=== PATIENT | female | born 1930 | race African-American/Black ===

== ENCOUNTER 2019-05-02 16:00 | Outpatient (CLI) | payer MEDICARE, BC ==
--- NOTE | 2019-05-02 17:29 | RAD ---
LUMBAR SPINE TWO VIEWS: HISTORY: Low back pain. FINDINGS: Extensive multilevel disk osteophytosis and facet arthrosis. Mild grade 1 anterolisthesis of L3 on L 4. Some nonspecific calcific foci noted anteriorly, on the lateral view, possibly intraabdominal kiran cifications or fibroid calcifications. 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 POS: [facility]
== END 2019-05-02 16:01 | disposition home or self-care (01) ==
LOC: BICRAD 16:00
PROVIDERS: ATTEND Family Medicine
DX: M54.5 Low back pain (principal); M43.16 Spondylolisthesis, lumbar region; M25.78 Osteophyte, vertebrae; M47.816 Spondylosis without myelopathy or radiculopathy, lumbar region
CPT/HCPCS: 72100

== ENCOUNTER 2019-05-30 11:58 | Outpatient (CLI) | payer MEDICARE, BC ==
--- NOTE | 2019-05-30 13:49 | MRI ---
MRI lumbar spine noncontrast: HISTORY: Degenerative spinal stenosis COMPARISON: None FINDINGS: Heterogeneous T1 marrow signal intensity of the lumbar vertebra. Vertebral body height is maintained. No fracture. Chronic Schmorl's node along the superior endplate of L2, superior endplate of L3 and superior plate of L4. Small Schmorl's node along the superior endplate of T12. 4 mm of anterolisthesis of L3 upon L4 Symmetric signal intensity of the paraspinal muscles. Appropriate signal intensity of the visualized solid organs Conus medullaris terminates at the L1-L2 disc space T12-L1:Broad-based disc bulge, ligament flavum thickening and facet hypertrophy result in mild centra l canal stenosis. Mild bilateral neural foraminal narrowing. L1-L2:Broad-based disc bulge, ligament flavum thickening and facet hypertrophy result in mild central canal stenosis. Bilaterally, neural foramina are patent. L2-L3:Broad-based disc bulge, ligament flavum thickening and facet hypertrophy result in mild to mode rate central canal stenosis. Right neural foramen is patent. Mild left neural foraminal narrowing. L3-L4:Broad-based disc bulge with a right subarticular component. Mass effect and partial obscuration traversing right L4 nerve root. Ligament flavum thickening and facet hypertrophy are present. Moderate central canal stenosis. Moderate right and severe left neural foraminal narrowing. There gary ears to be disc material in the left neural foramen obscuring the foraminal left L3 nerve root. L4-L5:Desiccation with moderate loss of disc space height. Broad-based disc bulge abuts and flattens the ventral thecal sac. Ligament flavum thickening and facet hypertrophy are present. Mild central canal stenosis. Mild right and [id number] left neural foraminal narrowing. L5-S1:Desiccation with mild loss of disc space height. Broad-based disc bulge abuts the ventral theca l sac. Disc material abuts but does not obscure the traversing S1 nerve root. Ligament flavum thickening and facet hypertrophy are present. Moderate right and mild left neural foraminal narrowing . IMPRESSION: Degenerative changes of the lumbar spine as detailed above. Moderate central canal stenosis at L3-L4. Severe left neural foraminal narrowing at L3-L4 due to disc material. There is obscuration the foraminal left L3 nerve root.
== END 2019-05-30 11:59 | disposition home or self-care (01) ==
LOC: BICMRI 11:58 → EDBD 12:45
PROVIDERS: ATTEND Family Medicine
DX: M48.061 Spinal stenosis, lumbar region without neurogenic claudication (principal); M47.816 Spondylosis without myelopathy or radiculopathy, lumbar region
CPT/HCPCS: 72148

== ENCOUNTER 2020-08-29 11:47 | Outpatient (CLI) | payer MEDICARE, BC ==
--- NOTE | 2020-08-29 13:34 | RAD ---
LEFT SHOULDER 3 VIEWS: HISTORY: Shoulder arthritis. COMPARISON: None. FINDINGS: Large osteophytes of the humeral head and glenoid. Moderate degenerative disease of the acromioclavi cular joint. No acute fracture or malalignment. 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 POS: [facility]
--- NOTE | 2020-08-29 13:36 | RAD ---
RIGHT SHOULDER THREE VIEW: 08/29/20 HISTORY: Shoulder arthritis. COMPARISON: None. FINDINGS: There are large osteophytes of the right humeral head and neck junction. Large glenoid osteophytes. Ribs are intact. Moderate narrowing of the glenohumeral joint. IMPRESSION: Advanced degenerative change. POS: [facility]
== END 2020-08-29 11:48 | disposition home or self-care (01) ==
LOC: BICRAD 11:47
PROVIDERS: ATTEND Family Medicine
DX: M19.011 Primary osteoarthritis, right shoulder (principal); M19.012 Primary osteoarthritis, left shoulder